=== PATIENT | female | born 1960 | race Caucasian/White ===

== ENCOUNTER 2024-10-29 00:48 | Emergency (ER) | payer MEDICARE, MEDICAID ==
[~2024-10-29] VITALS: Ht 165.1 cm; Wt 86.4 kg
[~2024-10-29 00:48] MED LIST: IBUP-2697 PO
[2024-10-29 00:52] VITALS: TEMP 98.1
--- NOTE | 2024-10-29 00:58 | Physician Documentation ---
History of Present Illness ~ Chief Complaint: See Chief Complaint Stated Complaint: ABNORMAL LABS A ALS Time Seen by MD: 00:56 Primary Medical Doctor: NONE HPI Patient presents to the emergency room for evaluation of chest pain. Patient has been having surgical site chest pain for the entire day. An EKG is performed at patient has rehab facility and an offsite reviewed it in ordered a troponin however staff at sending facility was unable to draw the blood therefore called EMS to bring patient to the emergency room for blood draw. EMS was able to drop blood in route. Medication Reconciliation Allergies: Coded Allergies: No Known Allergies (Unverified , 10/13/24) Scheduled PRN Ibuprofen (Ibuprofen), 2 TAB PO Q8H PRN for pain, (Reported) Past Medical History Past Medical History: Depression Past Surgical History: hysterectomy Alcohol Use: Occasionally Drug Use: none Lives with: Mother, Family Lives In: Home Occupation: employed Review of Systems ROS All review of systems negative except as per HPI Physical Exam Vital Signs: Temperature: 98.1, Source: Oral, Heart Rate: 84, Respiratory Rate: 16, BP: 131/80, Pulse Oximetry: 96, Weight: 86.400 Physical Exam General: Patient is awake, alert, oriented x4 in no acute distress~ Head: Normocephalic and atraumatic. Eyes: Conjunctival normal. EOMI. PERRL. ENT: Mucous membranes moist. Neck: Supple, trachea is midline. Chest: Clear to auscultation bilaterally without rales, rhonchi, or wheezes. There is no accessory muscle use or retractions. Sternotomy dressing is clean dry and intact and no signs of infection Cardiac: RRR without murmurs, gallops, or rubs. Abd: Soft, nondistended, nontender, with normoactive bowel sounds. No guarding, rebound, or rigidity. Progress Results/Orders Results/Orders Orders - SAEED YU MD Chest,Single View (10/29/24 00:57) Monitor (10/29/24 00:57) Saline Lock (10/29/24 00:57) Oxygen (10/29/24 00:57) Electrocardiogram (10/29/24 00:57) Hs Troponin I W Calculations (10/29/24 03:57) Hs Troponin I W Calculations (10/29/24 01:45) Completed Orders - SAEED YU MD Chest,Single View (10/29/24 00:57) Cbc/Diff (10/29/24 00:57) PBNP (10/29/24 00:57) Hs Troponin I W Calculations (10/29/24 00:57) Hs Troponin I W Calculations (10/29/24 02:57) CMP (10/29/24 00:57) Ondansetron Inj. (Zofran 4mg/2ml Vial) (10/29/24 02:20) Ketorolac Trometh 30mg/Ml Vial (Toradol (10/29/24 02:16) Ketorolac Trometh 30mg/Ml Vial (Toradol (10/29/24 02:20) Ketorolac Trometh 30mg/Ml Vial (Toradol (10/29/24 02:30) Medications Received in ER Medications (Trade) Dose Ordered Sig/Keisha Route PRN Reason Start Time Stop Time Status Last Admin Dose Admin (Zofran 4mg/2ml vial) 4 mg ONCE ONCE IM 10/29/24 02:20 10/29/24 02:21 DC 10/29/24 02:31 4 MG (Toradol inj. 30mg/ml) 15 mg ONCE ONCE IV 10/29/24 02:30 10/29/24 02:31 DC 10/29/24 02:31 15 MG Vital Signs 10/29/24 10/29/24 10/29/24 10/29/24 00:52 01:18 01:24 02:40 Temp 98.1 Pulse 84 83 83 Resp 16 16 16 16 B/P (MAP) 131/80 133/70 (91) 104/68 (80) Pulse Ox 96 96 94 O2 Flow Rate 0 0 Laboratory Tests Test 10/29/24 00:58 10/29/24 02:05 White Blood Count 9.4 Red Blood Count 3.13 L Hemoglobin 9.4 L Hematocrit 28.6 L Mean Corpuscular Volume 91.1 Mean Corpuscular Hemoglobin 30.0 Mean Corpuscular Hemoglobin Concent 33.0 Red Cell Distribution Width 15.8 H Platelet Count 143 Mean Platelet Volume 7.6 Neutrophils (%) (Auto) 76.1 H Lymphocytes (%) (Auto) 15.8 L Monocytes (%) (Auto) 7.0 Eosinophils (%) (Auto) 0.5 Basophils (%) (Auto) 0.6 Neutrophils # (Auto) 7.2 Lymphocytes # (Auto) 1.5 Monocytes # (Auto) 0.7 Eosinophils # (Auto) 0.0 Basophils # (Auto) 0.1 CBC Comment Sodium Level 143 Potassium Level 3.2 L Chloride Level 103 Carbon Dioxide Level 28.0 Anion Gap 12 Blood Urea Nitrogen 12 Creatinine 0.56 Estimated GFR/1.73 m2 > 90 BUN/Creatinine Ratio 21.4 H Glucose Level 113 H Calcium Level 8.8 Total Bilirubin 0.7 Aspartate Amino Transf (AST/SGOT) 16 Alanine Aminotransferase (ALT/SGPT) 29 Alkaline Phosphatase 192 H Troponin I High Sensitivity 122 *H 122 *H Pro-B-Type Natriuretic Peptide 1494 H Total Protein 6.6 Albumin 2.9 L Globulin 3.7 Albumin/Globulin Ratio 0.8 L Chemistry Comments Troponin I High Sens Percent Delta 0 Troponin I Hi Sens Absolute Change 0 EKG/XRAY/CT/US/VASC/MRI EKG : Additional Comment EKG interpreted by myself shows time of 0103, rate 85, sinus rhythm, normal axis, no ST changes Medical Decision Making Findings Patient presents to the emergency room for evaluation of chest pain. Differentials include but are not limited to postsurgical pain, ACS, pulmonary embolism, aortic pathology therefore emergent labs ordered. Patient does have an elevated troponin however to stable/not up trending/down trending and I believe this is a function of her recent cardiac surgery. No current chest pain. Given the fact she had recent CABG believe she is just suffering from postsurgical pain he had not ACS/pulmonary embolism. She is asking to leave. Departure Disposition: HOME / SELF CARE / HOMELESS Impression: Primary Impression: Postoperative pain Condition: Stable Discharge Instructions: Chest Wall Pain Referrals: NO PRIMARY CARE PROVIDER (PCP) Signature Scribe Signature: No scribe Attestation: The note accurately reflects work and decisions made by me.Saeed Yu MD 10/29/24 03:01 SAEED YU MD Oct 29, 2024 00:58
[2024-10-29 01:09] LABS: MEAN PLATELET VOLUME 7.6 FL (7.4-10.4); RED CELL DISTRIBUTION WIDTH 15.8 % (11.5-14.5)
[2024-10-29 01:24] LABS: CREATININE 0.56 MG/DL (0.40-0.90); TOTAL CARBON DIOXIDE 28.0 MMOL/L (24-32); eCRCL 89 ML/MIN; eGFR > 90 ML/MIN
[2024-10-29 01:30] LABS: PRO BRAIN NATRIURETIC PEPTIDE 1494 PG/ML (0-125)
--- NOTE | 2024-10-29 01:50 | RADIOLOGY REPORT ---
CHEST RADIOGRAPH Indication: CP Technique: Single frontal view of the chest was obtained COMPARISON: DI CHEST,SINGLE VIEW on DOS: 10/26/24, DI CHEST,SINGLE VIEW on DOS: 10/25/24, DI CHEST,SINGLE VIEW on DOS: 10/24/24, DI CHEST,SINGLE VIEW on DOS: 10/23/24, DI CHEST,SINGLE VIEW on DOS: 10/21/24 FINDINGS: Lines and Tubes: None Lungs: Moderate diffuse increased prominence of the pulmonary vasculature. Suspected small left pleural effusion. No evidence of focal consolidation. No pneumothorax. Cardiomediastinal contours: Cardiomegaly status post median sternotomy. Bones: Unremarkable IMPRESSION: 1. Cardiomegaly with mild pulmonary edema and small left pleural effusion.
[2024-10-29] MEDS ORDERED: ketorolac trometh 30MG/ML vial 30 MG/ML VIAL IV ONE (02:20)
[2024-10-29] MEDS: ketorolac trometh 30MG/ML vial 30 MG/ML VIAL IV STA (02:22)
[2024-10-29] MEDS: ketorolac trometh 30MG/ML vial 30 MG/ML VIAL IV ONE (02:31)
[2024-10-29] MEDS: ondansetron/PF 4mg/2ml inj IM ONE (02:31)
[2024-10-29 03:13] VITALS: BP 123/69; PULSE 86; RESP 16; O2SAT 95
--- NOTE | 2024-10-29 07:16 | ELECTROCARDIOGRAPH REPORT ---
[facility] Test Date: 2024-10-29 Test Time: 01:03:22 Pat Name: SEAN HAMEED Department: EMERGENCY ROOM Room: Gender: F Audio Visual Secretary: JIMENEZ/BRANDO : 1960 Requested By: KUN WAGNER Order Number: [id number] Reading MD: Measurements Intervals [place] Rate: 85 P: 46 MA: 171 QRS: 88 QRSD: 111 T: 251 QT: 406 QTc: 483 Interpretive Statements Sinus rhythm Probable left atrial enlargement Borderline right axis deviation Nonspecific T abnormalities, diffuse leads Please click the below link to view image of tracing.
[2024-10-29] MEDS ORDERED: AMIO200T76 PO (23:20)
[2024-10-29] MEDS ORDERED: DOCU100C38 PO (23:21)
[2024-10-29] MEDS ORDERED: BISA10SU60 RC (23:21)
[2024-10-29] MEDS ORDERED: HYDR-3965 PO (23:22)
[2024-10-29] MEDS ORDERED: ALBU1.253 NEB (23:23)
[2024-10-29] MEDS ORDERED: METO25TA6 PO (23:24)
[2024-10-29] MEDS ORDERED: MAGN400O6 PO (23:25)
== END 2024-10-29 03:14 | disposition home or self-care (01) ==
LOC: ER 00:49
DX: G89.18 Other acute postprocedural pain (principal); R07.89 Other chest pain; F32.A Depression, unspecified; Z90.710 Acquired absence of both cervix and uterus; Z72.89 Other problems related to lifestyle
CPT/HCPCS: 36415; 71045; 80053; 83880; 84484; 85025; 93005; 96372; 96374; 99285; A4615; J1885; J2405

== ENCOUNTER 2025-01-07 11:48 | Emergency (ER) | payer MEDICARE, MEDICAID ==
[~2025-01-07] VITALS: Ht 167.6 cm; Wt 99.1 kg
[~2025-01-07 11:48] MED LIST changes: +ALBU1.253 NEB; +AMIO200T76 PO; +BISA10SU60 RC; +DOCU100C38 PO; +HYDR-3965 PO; +MAGN400O6 PO; +METO25TA6 PO
--- NOTE | 2025-01-07 11:56 | ELECTROCARDIOGRAPH REPORT ---
[facility] Test Date: 2025-01-07 Test Time: 11:51:23 Pat Name: SEAN HAMEED Department: EMERGENCY ROOM [id number] Room: Gender: F Senior Treasury Analyst: BLAISE : 1960 Requested By: TAMIKA MCCANN Order Number: [id number] Reading MD: Dr. YUDITH Contreras Measurements Intervals [place] Rate: 54 P: 54 IN: 173 QRS: 114 QRSD: 110 T: 48 QT: 451 QTc: 428 Interpretive Statements Sinus bradycardia Probable left atrial enlargement Right axis deviation Borderline T abnormalities, anterior leads Electronically Signed On 01-07-2025 19:17:[address] YUDITH Contreras Please click the below link to view image of tracing.
[2025-01-07 12:17] LABS: MEAN PLATELET VOLUME 7.2 FL (7.4-10.4); RED CELL DISTRIBUTION WIDTH 14.8 % (11.5-14.5)
--- NOTE | 2025-01-07 12:31 | RADIOLOGY REPORT ---
CLINICAL HISTORY: CP TECHNIQUE: Single view of the chest was obtained. COMPARISON: DI CHEST,SINGLE VIEW on DOS: 10/29/24, DI CHEST,SINGLE VIEW on DOS: 10/26/24, DI CHEST,SINGLE VIEW on DOS: 10/25/24, DI CHEST,SINGLE VIEW on DOS: 10/24/24, DI CHEST,SINGLE VIEW on DOS: 10/23/24 FINDINGS: There are midline sternotomy wires. The heart size is mildly enlarged with pulmonary vascular congestion. There is no dense consolidation. IMPRESSION: Pulmonary vascular congestion.
--- NOTE | 2025-01-07 12:33 | Physician Documentation ---
History of Present Illness CC: MARC NUNES MD ~ Chief Complaint: Chest Pain Stated Complaint: CHEST PAIN Time Seen by MD: 12:15 Primary Medical Doctor: NONE Mode of Arrival: [facility] HEART Score: 6 HPI 64-year-old female with past medical history of STEMI with cardiac arrest, cardiogenic shock, pericardial tamponade, obesity, nicotine-dependence, RV perforation status post PCI of the RCA, along with status post emergent coronary artery bypass grafting x1 with control of bleeding of the right ventricle, AFib, subclinical hypothyroidism, anemia, heparin-induced thrombocytopenia, bilateral pulmonary embolism presented to the ER with chief complaints of chest pain. She endorses chest pain, over the retrosternal area radiating to axilla but not pertinent to the left arm, heaviness, three to 4/10, multiple episodes which is on and off from today morning. She endorses palpitations in the morning but subsided now & bilateral swelling of the legs. She denied degree difference 11, fainting, syncope, shortness of breath, wheezing, fever, cough, abdominal pain, abdominal distention, deviation of angle of mouth, starting of speech, seizures. She was recently admitted at [facility] on 10/14/2024 with a STEMI alert and cardiac arrest. Medication Reconciliation Allergies: Coded Allergies: heparin (Verified Allergy, Severe, RASH AND ITCH, 01/07/25) Scheduled Albuterol Sulfate (Albuterol Sulfate), 1 VIAL NEB Q4H, (Reported) Amiodarone Hcl (Cordarone), 200 MG PO BID, (Reported) Bisacodyl (Dulcolax), 1 SUPP RC DAILY, (Reported) Docusate Sodium (Docusate Sodium), 1 CAP PO Q12H, (Reported) Magnesium Hydroxide (Milk of Magnesia), 5 ML PO Q12H, (Reported) Metoprolol Tartrate (Metoprolol Tartrate), 1 TAB PO Q12H, (Reported) Scheduled PRN Hydrocodone Bit/Acetaminophen 5/325 MG (Seligman 5/325 MG), 1 TAB PO Q6H PRN for pain, (Reported) Ibuprofen (Ibuprofen), 2 TAB PO Q8H PRN for pain, (Reported) Past Medical History Past Medical History: Atrial Fibrillation, Coronary Artery Disease, High Cholesterol, Hypertension, Pulmonary Embolism, Hypothyroidism, Depression Past Surgical History: hysterectomy Alcohol Use: Occasionally Drug Use: none Lives with: Mother, Family Lives In: Home Occupation: employed Review of Systems ROS Reviewed in full and negative except for positive pertinent as in HPI Cardiovascular: Reports: see HPI, chest pain Physical Exam Vital Signs: Temperature: 98.7, Source: Oral, Heart Rate: 58, Respiratory Rate: 13, BP: 141/86, Pulse Oximetry: 96, Weight: 99.100 Oxygen Flow Rate: 0 Pulse Oximetry Reflects: adequate oxygenation General Appearance: alert, WD/WN, no apparent distress EENT: normal ENT inspection, moist mucous membranes, pharynx normal Neck: normal inspection, full range of motion, supple, non-tender Respiratory: lungs clear, normal breath sounds, no respiratory distress Chest: no accessory muscle use Cardiovascular: normal peripheral pulses, regular rate, rhythm, no edema, no gallop, no JVD, no murmur Peripheral Pulses Bilateral peripheral pulses are present Edema Bilateral pedal edema 2+ Gastrointestinal: normal palpation, non-tender, bowels sounds present Rectal: deferred Extremities: normal inspection, normal capillary refill, no calf tenderness Neurologic: oriented x4, dealership manager II-XII nml as tested, memory intact Psychiatric: normal mood/affect Skin: normal color, warm/dry Progress Results/Orders Results/Orders Orders - MARC NUNES MD Chest,Single View (01/07/25 11:52) Monitor (01/07/25 11:52) Saline Lock (01/07/25 11:52) Oxygen (01/07/25 11:52) Electrocardiogram (01/07/25 11:52) Completed Orders - MARC NUNES MD Chest,Single View (01/07/25 11:52) Cbc/Diff (01/07/25 11:52) BMP (01/07/25 11:52) PBNP (01/07/25 11:52) Electrocardiogram (01/07/25 11:52) Hs Troponin I W Calculations (01/07/25 11:52) Hs Troponin I W Calculations (01/07/25 13:52) Vital Signs 01/07/25 01/07/25 01/07/25 01/07/25 11:55 12:27 12:47 15:10 Temp 98.7 98.7 Pulse 58 61 58 Resp 18 13 15 12 B/P (MAP) 141/86 129/68 (88) 85/59 (68) Pulse Ox 96 96 97 O2 Flow Rate 0 0 01/07/25 15:14 Pulse 58 Resp 12 B/P (MAP) 85/59 Pulse Ox 97 Laboratory Tests Test 01/07/25 11:57 01/07/25 13:48 White Blood Count 5.7 Red Blood Count 4.47 Hemoglobin 13.2 Hematocrit 39.7 Mean Corpuscular Volume 88.8 Mean Corpuscular Hemoglobin 29.6 Mean Corpuscular Hemoglobin Concent 33.3 Red Cell Distribution Width 14.8 H Platelet Count 358 Mean Platelet Volume 7.2 L Neutrophils (%) (Auto) 69.5 Lymphocytes (%) (Auto) 23.6 Monocytes (%) (Auto) 4.1 Eosinophils (%) (Auto) 1.9 Basophils (%) (Auto) 0.9 Neutrophils # (Auto) 4.0 Lymphocytes # (Auto) 1.3 Monocytes # (Auto) 0.2 Eosinophils # (Auto) 0.1 Basophils # (Auto) 0.1 CBC Comment Sodium Level 141 Potassium Level 4.4 Chloride Level 107 Carbon Dioxide Level 26.6 Anion Gap 7 L Blood Urea Nitrogen 13 Creatinine 0.71 Estimated GFR/1.73 m2 82 BUN/Creatinine Ratio 18.3 Glucose Level 119 H Calcium Level 8.8 Troponin I High Sensitivity 13 13 Pro-B-Type Natriuretic Peptide 285 H Albumin 3.6 Chemistry Comments Troponin I High Sens Percent Delta 0 Troponin I Hi Sens Absolute Change 0 EKG/XRAY/CT/US/VASC/MRI EKG : Additional Comment I personally interpreted the EKG and this shows: Sinus bradycardia, rate 54, QTC 428, nonspecific T-wave changes in the anterior leads, no STEMI Chest X-Ray : Additional Comments I personally interpreted the x-ray, and it shows: Mild pulmonary edema, no focal consolidation, no pneumothorax Heart Score: Heart Score Response (Comments) Value History Highly Suspicious 2 EKG Repolarization Disturb 1 Age >65 2 Risk Factors 1 or 2 risk factors 1 Troponin Normal limit 0 Total 6 Medical Decision Making Additional information obtaine: old records, family Findings Chest pain likely secondary to unstable angina Heart score of six Vitals were stable. CBC is normal CMP showed rated proBNP of 285 EKG does not show any STEMI Troponin negative Chest x-ray showed cardiomegaly with pulmonary vascular congestion We will consult the life sciences manager for evaluation ACS concerning her recent major cardiac event coronary artery disease Heart Score: 6 Differential Dx:Considerations: Include: angina, CHF, costochondritis, esophageal reflux/spasm, gastritis, myocardial infarction, pericarditis, pleuritis Addendum I supervised the resident physician during the care of this patient. I independently interviewed and examined the patient, and reviewed her workup. She presents with chest pain. Her workup is unremarkable including no evidence of ACS or acute lung abnormality. On my exam she is quite tender on palpation of her left upper back and later relates that she did have a fall yesterday and hit her back on the ground. After a discussion with her, she thinks that her pain is likely in the chest wall from this fall and that she just became anxious because of her recent heart issues. Overall, no more dangerous cause identified for her pain. She will be discharged home with symptomatic treatment and close outpatient follow up. Return precautions given. Marc Nunes MD. Departure Time of Disposition: 14:59 Disposition: 01 HOME / SELF CARE / HOMELESS Impression: Primary Impression: Chest wall pain Condition: Stable Discharge Instructions: Chest Wall Pain, Nonspecific Chest Pain, Adult Referrals: NO PRIMARY CARE PROVIDER (PCP) Education Educated: Patient, Family Educated regarding: diagnosis, treatment, prognosis, need for follow up Signature Scribe Signature: The note accurately reflects work and decisions made by me.Faye Blanc - Resident 01/07/25 13:12 Attestation: The note accurately reflects work and decisions made by me.Faye Blanc - Resident 01/07/25 13:12 FAYE BLANC, RES Jan 07, 2025 12:32 MARC NUNES MD Jan 07, 2025 15:00
[2025-01-07 12:39] LABS: CREATININE 0.71 MG/DL (0.40-0.90); PRO BRAIN NATRIURETIC PEPTIDE 285 PG/ML (0-125); TOTAL CARBON DIOXIDE 26.6 MMOL/L (24-32); eCRCL 73 ML/MIN; eGFR 82 ML/MIN
[2025-01-07 15:10] VITALS: TEMP 98.7
[2025-01-07 15:14] VITALS: BP 85/59; PULSE 58; RESP 12; O2SAT 97
== END 2025-01-07 15:16 | disposition home or self-care (01) ==
LOC: ER 11:48
DX: R07.89 Other chest pain (principal); I25.10 Atherosclerotic heart disease of native coronary artery without angina pectoris; I10 Essential (primary) hypertension; I25.2 Old myocardial infarction; E78.00 Pure hypercholesterolemia, unspecified; I48.91 Unspecified atrial fibrillation; F32.A Depression, unspecified; Z86.711 Personal history of pulmonary embolism; Z90.710 Acquired absence of both cervix and uterus; Z95.1 Presence of aortocoronary bypass graft; Z95.5 Presence of coronary angioplasty implant and graft; Z72.89 Other problems related to lifestyle; Z79.899 Other long term (current) drug therapy
CPT/HCPCS: 36415; 71045; 80048; 83880; 84484; 85025; 93005; 99285